=== PATIENT | female | born 1995 | race Caucasian/White ===

== ENCOUNTER 2019-04-05 09:34 | Emergency (ER) | payer BC ==
[~2019-04-05] VITALS: Ht 167.6 cm; Wt 63.6 kg
[~2019-04-05 09:34] MED LIST: ONDA4TAB6 PO
[2019-04-05 10:48] LABS: BASOPHILS % (AUTO) 0.4 % (0-1); EOSINOPHILS # (AUTO) 0.1 X10'3 (0-0.9); EOSINOPHILS % (AUTO) 0.6 % (0-6); HEMATOCRIT 41.8 % (35.0-45.0); HEMOGLOBIN 14.3 g/dl (12.0-16.0); LYMPHOCYTES # (AUTO) 2.1 X10'3 (1.1-4.8); LYMPHOCYTES % (AUTO) 23.6 % (21-51); MEAN CORPUSCULAR HEMOGLOBIN 29.6 PG (27.0-31.0); MEAN CORPUSCULAR HGB CONC 34.2 g/dL (33.0-36.5); MEAN CORPUSCULAR VOLUME 86.7 FL (78-98); MEAN PLATELET VOLUME 6.7 FL (7.4-10.4); MONOCYTES # (AUTO) 0.4 X10'3 (0-0.9); MONOCYTES % (AUTO) 5.1 % (2-12); NEUTROPHILS # (AUTO) 6.2 X10'3 (1.8-7.7); NEUTROPHILS % (AUTO) 70.3 % (42-75); PLATELET COUNT 303 X10'3 (140-440); RED BLOOD COUNT 4.82 X10'6 (4.20-5.60); RED CELL DISTRIBUTION WIDTH 12.7 % (11.5-14.5); WHITE BLOOD COUNT 8.8 X10'3 (4.5-11.0)
[2019-04-05 11:04] LABS: ALANINE AMINOTRANSFERASE 20 U/L (12-78); ALBUMIN 3.8 G/DL (3.4-5.0); ALKALINE PHOSPHATASE 56 IU/L (46-116); ANION GAP 10 (8-16); ASPARTATE AMINO TRANSFERASE 17 U/L (10-37); BILIRUBIN,TOTAL 0.4 MG/DL (0.1-1.0); BLOOD UREA NITROGEN 4 MG/DL (7-18); BUN/CREATININE RATIO 4.9 (6.6-38.0); CALCIUM 8.9 MG/DL (8.5-10.1); CHLORIDE 106 MMOL/L (99-107); CREATININE 0.81 MG/DL (0.40-0.90); GLUCOSE 90 MG/DL (70-104); POTASSIUM 3.9 MMOL/L (3.5-5.1); SODIUM 142 MMOL/L (135-145); TOTAL CARBON DIOXIDE 25.6 MMOL/L (24-32); TOTAL PROTEIN 7.7 G/DL (6.4-8.2); eGFR 87 ML/MIN
--- NOTE | 2019-04-05 11:05 | NUR ---
FRANCISCO REPORTS THAT PAIN IS NOT LIKE HER PREVIOUS KIDNEY STONE PAIN "THAT WAS IN MY BACK" FRONT RIGHT ABDOMEN PRESSURE FROM INSIDE OUT
[2019-04-05 11:08] LABS: URINE HCG NEGATIVE (NEG)
[2019-04-05] MEDS ORDERED: morphine 4 MG/ML inj SYRINge IV ONE (11:30)
[2019-04-05] MEDS ORDERED: ondansetron/PF 4mg/2ml inj IV ONE (11:30)
[2019-04-05 13:42] VITALS: BP 120/65
== END 2019-04-05 13:44 | disposition home or self-care (01) ==
LOC: ER 09:35
DX: N83.201 Unspecified ovarian cyst, right side (principal); K66.8 Other specified disorders of peritoneum; R19.7 Diarrhea, unspecified; Z79.899 Other long term (current) drug therapy
CPT/HCPCS: 36415; 76700; 76830; 76856; 80053; 81025; 85025; 96374; 96375; 99284; J2270; J2405